=== PATIENT | male | born 1950 | race Hispanic/Latino ===

== ENCOUNTER 2022-10-08 13:53 | Outpatient (RCR) | payer MEDICARE ==
[~2022-10-08 13:53] MED LIST: ASPIRIN81 MG PO; DIOVAN HCT 3201 EAC1 PO; IBUPROFEN400 MG PO; LANTUS100 UNITS/ SC; METFORMIN HCL500 MG PO; ONGLYZA5 MG PO; SIMVASTATIN20 MG PO; VITAMIN B PO; VITAMIN D1000 UNIT PO
== END 2022-10-09 ==
LOC: PT 13:53
PROVIDERS: ATTEND Specialist
DX: M17.12 Unilateral primary osteoarthritis, left knee (principal); M25.661 Stiffness of right knee, not elsewhere classified

== ENCOUNTER 2022-11-03 14:00 | Outpatient (RCR) | payer MEDICARE | END 2022-11-08 | LOC: PT 14:00 | PROVIDERS: ATTEND Specialist | DX: M17.12 Unilateral primary osteoarthritis, left knee (principal); M25.661 Stiffness of right knee, not elsewhere classified ==